=== PATIENT | male | born 1965 | race Caucasian/White ===

== ENCOUNTER 2018-12-02 09:17 | Day surgery (SDC) | payer BC ==
[~2018-12-02 09:17] MED LIST: Acetaminophen TAB* 325 MG PO PRN; Buffered Lidocaine 1% SYRIN* 1 ML/SYRINGE INTRADERM ONE
[2018-12-02] MEDS ORDERED: Phenylephrine OPHTH SOL 2.5%* 2 ML ONE (09:59)
[2018-12-02] MEDS ORDERED: Povidone Iodine 5% OPTH* 30 ML BTL ONE (09:59)
[2018-12-02] MEDS ORDERED: Neomycin/Polymy/Dex OPTH.SUSP* MAXITROL 0.1% 5 ML ONE (09:59)
[2018-12-02] MEDS ORDERED: Cyclopentolate 1% OPTH.SOL* 2 ML BTL ONE (09:59)
[2018-12-02] MEDS ORDERED: Lidocaine 2% EPI 1:200000 MPF*10-20 ML VIAL ONE (09:59)
[2018-12-02] MEDS ORDERED: Proparacaine 0.5% OPHTH.SOL* 15 ML BTL ONE (09:59)
[2018-12-02] MEDS ORDERED: Ketorolac 0.5% OPHTH (NF) 0.5 % 5 ML BTL ONE (09:59)
[2018-12-02] MEDS ORDERED: acetaZOLAMIDE TAB* 250 MG ONE (09:59)
[2018-12-02] MEDS ORDERED: Lidocaine 1%* 5 ML VIAL ONE (09:59)
[2018-12-02] MEDS ORDERED: Midazolam* 1 MG/ML 2 ML VIAL (2 MG) ONE (10:29)
[2018-12-02 11:57] VITALS: BP 131/80
--- NOTE | 2018-12-02 12:05 | OP ---
OPERATIVE NOTE: DATE OF OPERATION: 12/02/18 DATE OF : 69 SURGEON: Hema Dorado MD PREOPERATIVE DIAGNOSIS: Cataract left eye. POSTOPERATIVE DIAGNOSIS: Cataract left eye. OPERATIVE PROCEDURE: Extracapsular cataract extraction with intraocular lens implant left eye. PROCEDURE: The patient was brought to the operating room after being given 1/2% Alcaine with epineph rine drops in the preoperative area. The eye was prepped and draped in the usual sterile fashion. S terile drape and eyelid speculum were placed. Again, topical 1/2% Alcaine with epinephrine was given . A paracentesis incision was made at the 3 o'clock position with the No.75 blade. Clear cornea inc ision 2.2 x 2.2-mm was created at the 6 o'clock position starting at the anterior limbus using the 2. 2-mm keratome. The anterior chamber was irrigated with 0.4 mL of 1% non-preservative intracameral li docaine and filled with DisCoVisc. A capsulorrhexis was completed using the cystotome and the Utrata forceps. Hydrodissection was performed with balanced salt solution. The lens nucleus was removed wi th the Phacoemulsification handpiece without incident. Cortex was removed with the irrigation-aspira tion handpiece. The capsular bag was re-inflated using DisCoVisc and an SN6AT3 23.5 implant was inse rted with the shooter oriented to the 26 degree [place]. The horizontal reference contreras were made w ith the patient in seated position in the preoperative area. All measurements were confirmed with OR A. The irrigation-aspiration handpiece was used to remove all residual DisCoVisc. The eye was refil led with balanced salt solution and the wound checked and found to be watertight. Topical Maxitrol d rops were given. [id number] #: [id number]
== END 2018-12-02 11:45 | disposition home or self-care (01) ==
LOC: OREAST 09:17
PROVIDERS: ATTEND Specialist
DX: H26.102 Unspecified traumatic cataract, left eye (principal); H40.023 Open angle with borderline findings, high risk, bilateral; I10 Essential (primary) hypertension
CPT/HCPCS: A9270-GY; J2250; V2787